=== PATIENT | male | born 2005 | race African-American/Black ===

== ENCOUNTER 2024-05-26 11:41 | Observation (INO) | payer OTHER ==
[2024-05-26 11:58] VITALS: BMI 25.4
[2024-05-26 14:27] LABS: BASO % 0.2 % (0-2.0); EOS % 1.1 % (0-4.5); HEMATOCRIT 41.1 % (35.4-49); HEMOGLOBIN 13.9 GM/dL (11.7-16.9); LYMPH % 39.2 % (8-40); MCH 30.6 pg (25.7-33.7); MCHC 33.8 g/dl (32.0-35.9); MEAN CELL VOLUME 90.5 fl (80-96); MEAN PLT VOLUME 8.1 fl (7.5-11.1); MONO % 9.7 % (3.8-10.2); NEUT % 49.8 % (42.8-82.8); PLATELET COUNT 251 10^3/uL (134-434); RBC 4.54 M/mm3 (4.00-5.60); RDW 13.9 % (11.9-15.9); WHITE BLOOD COUNT 4.1 K/mm3 (4.0-10.0)
[2024-05-26 14:34] LABS: COCAINE, UR NEGATIVE (NEGATIVE); METHADONE, UR NEGATIVE (NEGATIVE); PHENCYCLIDINE,URINE NEGATIVE (NEGATIVE)
[2024-05-26 14:35] LABS: URINE BARBITURATES NEGATIVE (NEGATIVE)
[2024-05-26 14:45] LABS: POTASSIUM 4.2 mmol/L (3.5-5.1)
[2024-05-26 14:48] LABS: BLOOD UREA NITROGEN 13.9 mg/dL (7-18); CALCIUM 9.3 mg/dL (8.5-10.1)
[2024-05-26 14:52] LABS: CREATININE 0.9 mg/dL (0.55-1.3)
[2024-05-26 14:53] LABS: BILIRUBIN,TOTAL 0.4 mg/dL (0.2-1); TOT PROT 7.8 g/dl (6.4-8.2)
[2024-05-26 15:41] LABS: HIV INTERPRETATION NEGATIVE (NEGATIVE); OPIATES, URI NEGATIVE (NEGATIVE); URINE AMPHETAMINES NEGATIVE (NEGATIVE); URINE BENZODIAZEPINES NEGATIVE (NEGATIVE)
[2024-05-26] MEDS ORDERED: MIDAZOLAM HCL 5 MG/1 ML Single Dose Vial ONE (18:27)
[2024-05-26] MEDS ORDERED: HALOPERIDOL LACTATE 5 MG/ML ONE (18:27)
[2024-05-26] MEDS: MIDAZOLAM HCL 5 MG/1 ML Single Dose Vial IM ONE (18:34)
[2024-05-26] MEDS: HALOPERIDOL LACTATE 5 MG/ML IM ONE (18:34)
[2024-05-27] MEDS ORDERED: HALOPERIDOL LACTATE 5 MG/ML ONE (16:27)
[2024-05-27] MEDS ORDERED: MIDAZOLAM HCL 2 MG/2 ML SINGLE DOSE VIAL ONE (16:27)
[2024-05-27] MEDS: MIDAZOLAM HCL 2 MG/2 ML SINGLE DOSE VIAL IM ONE (16:40)
[2024-05-27] MEDS: HALOPERIDOL LACTATE 5 MG/ML IM ONE (16:40)
[2024-05-28] MEDS: ACETAMINOPHEN 500 MG TABLET (FP) PO ONE (09:58)
[2024-05-28] MEDS: diphenhydrAMINE HCL 25 MG CAPSULE (FP) PO ONE (09:58)
[2024-05-28 15:49] VITALS: RESP 18
[2024-05-29] MEDS: LORazepam 2 MG/ML SDV VIAL IM PRN (04:22)
[2024-05-29 16:51] VITALS: BP 112/51; PULSE 61; TEMP 97.9
== END 2024-05-29 16:45 | disposition short-term general hospital (02) ==
LOC: JER 11:41 → JERBED 05-27 15:47 → J6S 05-27 18:30
PROVIDERS: ADMIT Internal Medicine; ATTEND Internal Medicine
PROC: 3E0333Z Introduction of Anti-inflammatory into Peripheral Vein, Percutaneous Approach (ICD-10-PCS; principal; 2024-05-27)
DX: R45.851 Suicidal ideations (principal); Z91.51 Personal history of suicidal behavior
CPT/HCPCS: 36415; 71045-TC-FY; 80053; 80307; 84443; 85025; 86803; 87389; 87635; 93005; 93010; 96372; 99285-25; G0378